=== PATIENT | female | born 1945 | race Caucasian/White ===

== ENCOUNTER 2018-04-15 18:08 | Emergency (ER) | payer MEDICARE, BC ==
[2018-04-15] MEDS ORDERED: Sodium Chloride 0.9% 10 ML Syringe FLUSH PRN (18:18)
[2018-04-15 19:17] LABS: CHLORIDE,CL 103 mmol/L (98-107); SODIUM,NA 132 mmol/L (136-145)
[2018-04-15] MEDS ORDERED: HYDROmorphone 1 MG/ML Syringe IVPUSH ONE (19:34)
[2018-04-15] MEDS ORDERED: Ondansetron 4 MG/2 ML SDV IVPUSH ONE (19:34)
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
== END 2018-04-15 19:57 | disposition short-term general hospital (02) ==
LOC: VM.ED 18:08
DX: G45.9 Transient cerebral ischemic attack, unspecified (principal); Z88.8 Allergy status to other drugs, medicaments and biological substances; Z88.0 Allergy status to penicillin; Z88.2 Allergy status to sulfonamides; Z91.040 Latex allergy status; Z79.82 Long term (current) use of aspirin; Z79.899 Other long term (current) drug therapy
CPT/HCPCS: 36415; 70450; 80053; 82962; 84484; 85025; 85610; 96374; 96375; 99285; J1170; J2405

== ENCOUNTER 2024-08-01 11:44 | Emergency (ER) | payer MEDICARE, BC ==
[2024-08-01 11:59] VITALS: BP 188/61; PULSE 60
[2024-08-01] MEDS: Take Home: Acetaminophen/Codeine 300 MG/30 MG, 5 Tab Pack PO ONE (13:53)
== END 2024-08-01 13:50 | disposition home or self-care (01) ==
LOC: VM.ED 11:44
DX: S40.011A Contusion of right shoulder, initial encounter (principal); I10 Essential (primary) hypertension; K21.9 Gastro-esophageal reflux disease without esophagitis; M19.90 Unspecified osteoarthritis, unspecified site; E66.9 Obesity, unspecified; E11.9 Type 2 diabetes mellitus without complications; Z88.0 Allergy status to penicillin; Z88.2 Allergy status to sulfonamides; Z91.040 Latex allergy status; Z91.048 Other nonmedicinal substance allergy status; Z79.82 Long term (current) use of aspirin; Z79.01 Long term (current) use of anticoagulants; Z79.899 Other long term (current) drug therapy; W19.XXXA Unspecified fall, initial encounter
CPT/HCPCS: 73030; 73060; 99283; A9270